=== PATIENT | female | born 1985 | race Caucasian/White ===

== ENCOUNTER 2019-12-14 | Inpatient (IN) | payer OTHER, SELFPAY ==
[2019-12-14] VITALS (224 sets, daily range): BP systolic 63–208; BP diastolic 15–148; PULSE 45–157; RESP 18–20; TEMP 36.3–37.6; O2SAT 78–100; BMI 34.8
--- NOTE | 2019-12-14 | LDADM ---
This patient, Rosana Banks, was admitted to Labor/Delivery/Recovery 109 on 12/14/19 at 00:00. Plans for labor, pain management and were discussed with patient. Patient/family oriented to hospital policies and general routines including ID bracelet, bed and alarms, visiting hours, pain management, procedures, bathroom and other care routines, personal items, smoking policy, room service/diet and guest tray routines, security routines, and visiting hours. Patient/Family are encouraged to report perceived risks to care and to ask questions if they do not understand what they are told or what they should do. See OBIX for further documentation.
[2019-12-14] MEDS: DINOPROSTONE 10 MG VAG INSERT VAGINAL (00:54)
[2019-12-14 00:56] LABS: Basophils Percent Auto 0.2 % (0.2-1.2); Eosinophils Absolute Auto 0.1 K/mm3 (0-0.3); Eosinophils Percent Auto 0.8 % (0-4.4); Hematocrit 32.3 % (37.0-47.0); Hemoglobin 11.5 g/dL (12.0-15.0); Immature Granulocyte Absolute 0.04 K/mm3 (0.00-0.031); Immature Granulocyte Percent A 0.4 % (0-0.5); Lymphocytes Absolute Auto 1.63 K/mm3 (0.9-3.2); Lymphocytes Percent Auto 17.7 % (18.3-44.2); Mean Corpuscular HGB Conc 35.6 g/dl (32-36); Mean Corpuscular Volume 87.1 fl (80-100); Mean Platelet Volume 10.8 fl (7.4-10.4); Monocytes Absolute Auto 0.6 K/mm3 (0.1-0.6); Monocytes Percent Auto 6.5 % (2.6-8.5); Neutrophils Absolute Auto 6.9 K/mm3 (1.3-6.7); Neutrophils Percent Auto 74.4 % (45.5-73.1); Platelet Count Result 259 k/mm3 (150-375); Red Blood Count 3.71 M/mm3 (4.2-5.4); Red Cell Distribution Width 12.2 % (11.5-14.5); White Blood Count 9.2 K/mm3 (4.5-10.0)
--- NOTE | 2019-12-14 07:31 | P.PNAN_ITS ---
Anes - Eval Pre Procedure Procedure: Labor epidural Date/Time: 12/14/19 07:31 Surgeon: Jeffy Pre Op Diagnosis: IOL Patient Data Age: 34 Gender: F Height: 1.65 m Weight: 95 kg Last Vital Signs Temp 36.6 C 12/14/19 02:59 Pulse 77 12/14/19 07:01 BP 116/79 12/14/19 07:01 Allergies Allergy/AdvReac Type Severity Reaction Status Date / Time latex Allergy Rash Verified 12/14/19 00:08 Home Medications Medication Instructions Recorded Confirmed Type PNV cmb#95-ferrous fumarate-FA 1 tablet PO DAILY 11/20/19 12/14/19 History [] Laboratory Tests 12/14/19 12/14/19 12/14/19 00:37 00:37 00:37 WBC 9.2 K/mm3 K/mm3 (4.5-10.0) RBC 3.71 M/mm3 L M/mm3 (4.2-5.4) Hgb 11.5 g/dL L g/dL (12.0-15.0) Hct 32.3 % L % (37.0-47.0) MCV 87.1 fl fl (80-100) MCH 31.0 pg pg (26-34) MCHC 35.6 g/dl g/dl (32-36) RDW 12.2 % % (11.5-14.5) Plt Count 259 k/mm3 k/mm3 (150-375) MPV 10.8 fl H fl (7.4-10.4) Immature Gran % (Auto) 0.4 % % (0-0.5) Neut % (Auto) 74.4 % H % (45.5-73.1) Lymph % (Auto) 17.7 % L % (18.3-44.2) [place] % (Auto) 6.5 % % (2.6-8.5) Eos % (Auto) 0.8 % % (0-4.4) Baso % (Auto) 0.2 % % (0.2-1.2) Lymph # (Auto) 1.63 K/mm3 K/mm3 (0.9-3.2) [place] # (Auto) 0.6 K/mm3 K/mm3 (0.1-0.6) Eos # (Auto) 0.1 K/mm3 K/mm3 (0-0.3) Baso # (Auto) 0.0 K/mm3 K/mm3 (0.0-0.1) Abs Immat Gran (auto) 0.04 K/mm3 H K/mm3 (0.00-0.031) Absolute Neuts (auto) 6.9 K/mm3 H K/mm3 (1.3-6.7) Absolute Nucleated RBC 0.0 K/mm3 K/mm3 (0.0-0.012) Nucleated RBC % 0.0 % % (0.0-0.2) RPR Pending Blood Type O Positive Antibody Screen Negative Patient hx anesthesia problems: none Family hx anesthesia problems: none PMFSH Family History Family History Father Acute myocardial infarction Social History Social History Smoking status: Former smoker Tobacco type: cigarettes Substance use: never Spiritual care concerns: No Exam Day of Procedure 12/14/19 07:31 Patient weight: obese Heart: regular rate and rhythm Lungs: normal air movement Airway: Mallampati scale class II Neurological: alert and oriented
[2019-12-14] MEDS: OXYTOCIN 30 UNITS/NS 500 ML 30 UNITS/500 ML BAG 6 UNITS IV CONT (08:00)
[2019-12-14] MEDS: LACTATED RINGERS 1,000 ML 125 ML IV CONT ×5 (08:00→22:58)
[2019-12-14 09:36] LABS: Rapid Plasma Reagin Non-Reactive (NonReactive)
--- NOTE | 2019-12-14 13:29 | WPDOBADMIT ---
Obstetrics - Admit Note Admission Note: record reviewed. No pertinent additions to the history and/or any subsequent changes in the physical findings that are not consistent with the expected course of the were found. Additions to the history and/or subsequent changes in the physical findings follow. None.Here for MIL. cervix FT/50/-3 attempted AROM but did not have fluid return Per RN, shortly after, clear fluid noted. FHTs reactive.
[2019-12-14] MEDS: LORATADINE 10 MG TABLET PO (14:44)
[2019-12-14] MEDS: SODIUM CHLORIDE 0.9% IV 300 ML 600 ML I-UTERINE (15:50)
[2019-12-14] MEDS: ONDANSETRON INJ 4 MG/2 ML VIAL IV PUSH (20:01)
[2019-12-15] VITALS (106 sets, daily range): BP systolic 98–150; BP diastolic 41–107; PULSE 57–116; RESP 14–20; TEMP 36.8–38.2; O2SAT 95–100
[2019-12-15] MEDS: AMPICILLIN 2 GM/NS 100 ML 2 GM/100 ML BAG IVPB (01:00)
--- NOTE | 2019-12-15 04:16 | PM.OBPNVD ---
OB - PN: Subj Subjective Date/time seen: 12/15/19 04:16 Interval history: Patient with slow progress in labor. Has been 4-5 cm for many hours. Now 5/80/-2 by my exam. FHT's have been category 2 throughout day and Pitocin has been on and off (which I was informed of). Now has elevated baseline 170's x 2 1/2 hours and decreased variability with random variables and occ. late decels which I discovered when I came to labor for a separate delivery. Due to temp of 99.6 and headache, RN gave tylenol. Now, temp is 100.8. Discussed with patient and recommend proceed with csection. OB - PN: Obj Data Labs CBC & Chem 7: 12/14/19 00:37 Labs: Laboratory Results - last 24 hr 12/14/19 00:37 RPR Non-reactive OB - PN A/P Time Spent With Patient Time: Total time spent is greater than 50% in coordination of care (as documented) at patient's floor/unit and/or counseling patient:
--- NOTE | 2019-12-15 04:22 | PM.IMHP ---
H&P: HPI History of Present Illness Date/Time: 12/15/19 04:22 Chief complaint: IOL Narrative: Rosana Banks is a 34 year old female here for MIL. Patient with slow progress in labor. Has been 4-5 cm for many hours. Now 5/80/-2 by my exam. FHT's have been category 2 throughout day and Pitocin has been on and off (which I was informed of). Now has elevated baseline 170's x 2 1/2 hours and decreased variability with random variables and occ. late decels which I discovered when I came to labor for a separate delivery. Due to temp of 99.6 and headache, RN gave tylenol. Now, temp is 100.8. Discussed with patient and recommend proceed with csection. Patient agrees. uncomplicated. labs: O+; RPR -; HBSAg -; Rubella immune; HIV -; GBS -. [facility] Family History Family History Father Acute myocardial infarction Social History Social History Smoking status: Former smoker Tobacco type: cigarettes Substance use: never Spiritual care concerns: No Meds Home Medications and Allergies Home Medications Medication Instructions Recorded Confirmed Type PNV cmb#95-ferrous fumarate-FA 1 tablet PO DAILY 11/20/19 12/14/19 History [] Allergies Allergy/AdvReac Type Severity Reaction Status Date / Time latex Allergy Rash Verified 12/14/19 00:08 Vital Signs Vital Signs - 24 hr 12/14/19 07:00 12/14/19 07:01 12/14/19 08:28 Temperature Pulse Rate 76 77 77 Respiratory Rate Blood Pressure 113/84 116/79 121/79 Pulse Oximetry 12/14/19 08:30 12/14/19 09:01 12/14/19 09:30 Temperature 98.8 F Pulse Rate 77 75 73 Respiratory Rate 20 Blood Pressure 135/82 112/69 119/78 Pulse Oximetry 12/14/19 10:01 12/14/19 11:01 12/14/19 11:16 Temperature Pulse Rate 77 57 L 62 Respiratory Rate Blood Pressure 131/86 113/64 128/77 Pulse Oximetry 12/14/19 11:17 12/14/19 11:21 12/14/19 11:22 Temperature Pulse Rate 63 Respiratory Rate Blood Pressure 121/79 Pulse Oximetry 98 99 12/14/19 11:27 12/14/19 11:30 12/14/19 11:31 Temperature 97.5 F L Pulse Rate 63 64 Respiratory Rate Blood Pressure 124/66 113/80 Pulse Oximetry 97 12/14/19 11:32 12/14/19 11:36 12/14/19 11:37 Temperature Pulse Rate 57 L Respiratory Rate Blood Pressure 121/59 L Pulse Oximetry 98 100 12/14/19 11:38 12/14/19 11:40 12/14/19 11:42 Temperature 97.4 F L Pulse Rate 63 81 74 Respiratory Rate Blood Pressure 109/60 115/63 111/59 L Pulse Oximetry 99 12/14/19 11:46 12/14/19 11:47 12/14/19 11:48 Temperature Pulse Rate 115 H 69 Respiratory Rate Blood Pressure 95/60 L 96/53 L Pulse Oximetry 98 12/14/19 11:52 12/14/19 11:54 12/14/19 11:57 Temperature Pulse Rate 52 L 53 L Respiratory Rate Blood Pressure 92/53 L 109/57 L Pulse Oximetry 100 99 12/14/19 11:58 12/14/19 12:02 12/14/19 12:04 Temperature Pulse Rate 58 L 61 Respiratory Rate Blood Pressure 95/46 L 94/39 L Pulse Oximetry 98 12/14/19 12:07 12/14/19 12:12 12/14/19 12:15 Temperature Pulse Rate 62 57 L Respiratory Rate Blood Pressure 92/41 L 91/49 L Pulse Oximetry 99 99 12/14/19 12:17 12/14/19 12:22 12/14/19 12:27 Temperature Pulse Rate Respiratory Rate Blood Pressure Pulse Oximetry 100 99 98 12/14/19 12:31 12/14/19 12:32 12/14/19 12:37 Temperature Pulse Rate 60 Respiratory Rate Blood Pressure 86/44 L Pulse Oximetry 100 96 12/14/19 12:42 12/14/19 12:45 12/14/19 12:47 Temperature Pulse Rate 68 Respiratory Rate Blood Pressure 104/62 Pulse Oximetry 100 100 12/14/19 12:52 12/14/19 12:57 12/14/19 13:00 Temperature Pulse Rate 64 Respiratory Rate Blood Pressure 106/63 Pulse Oximetry 98 99 12/14/19 13:02 12/14/19 13:07 12/14/19 13:12 [place]
[2019-12-15] MEDS: ceFAZolin 2 GM/D5W 50 ML 2 GM/50 ML BAG IVPB (04:40)
[2019-12-15] MEDS: AMPICILLIN 1 GM/NS 50 ML 1 GM/50 ML BAG IVPB (05:02)
--- NOTE | 2019-12-15 05:31 | PM.OBDSVD ---
DS: Admitting Diagnosis Admitting Diagnosis Admitting Diagnosis: IOL IUP 39 wks intolerance of labor chorioamnionitis DS: Discharge Diagnosis Discharge Diagnosis (1) Chorioamnionitis: Code(s): O41.1290 - Chorioamnionitis, unspecified trimester, not applicable or unspecified Status: Acute (2) intolerance to labor, delivered, current hospitalization: Code(s): O77.9 - Labor and delivery complicated by stress, unspecified Status: Acute (3) 39 weeks gestation of : Code(s): Z3A.39 - 39 weeks gestation of Status: Acute (4) delivery delivered: Code(s): O82 - Encounter for delivery without indication Status: Acute OB - DS: Summary OB Procedures : Ultrasound OB Procedures Intrapartum: low cervical, transverse OB Procedures: : None Peripartum Data Infant Delivery Method: Section Procedures: Procedures Operation Date: 12/15/19 04:20 <No data on this case meets the specified criteria> Status at Discharge Functional status at discharge: independent ambulation Overall status at discharge: patient is progressing back to baseline Time Spent with Patient Time attestation: Total time spent providing and/or coordinating discharge services: DS: Data Data Completed and Pending Labs on day of discharge: Labs from last 24 hours 12/14/19 00:37 RPR Non-reactive Discharge Plan Discharge Attending physician on discharge: Supriya Bardales Discharging Clinician: Supriya Bardales Anticipated Discharge Date/Time: 12/18/19 05:33 Patient Disposition: Home, Self-Care Activity: may shower, may drive after 2 weeks and pelvic rest Diet: regular Wound Care Instructions: incision open to air Discharge Instructions: Education: Mom and Baby Guide Given to: Mother Follow-Up: Call your delivering provider's office for an appointment to be seen in: 1 Week [facility]. Appointment Date/Time: December 18, 2019 at 8:00 am What to expect at your follow-up visit: Blood Pressure Check Physical Assessment Call [phone] if you are unable to keep your appointment time. BREAST CARE: * Wear a snug supportive bra. Bottle Feeding: * May apply ice packs * For sore nipples: * Identify correct latch-on * Apply warm moist washcloths before and after nursing * Air dry nipples after nursing * May apply Lansinoh cream to nipples ABDOMINAL INCISION: (if applicable) * Allow incision to air dry * Do NOT use lotions for powders on your incision * When showering, allow soap and water to run over the incision, but do not wash incision EPISIOTOMY/PERINEAL CARE: * Until bleeding stops, use your danilo bottle after urinating * Change your pad frequently throughout the day * No tub baths until seen by your physician - You may shower ACTIVITY: * Rest as much as possible. * Do not exercise or lift anything heavier than your baby (such as laundry or other children.) * Avoid stairs or driving as much as possible. * Do not put anything into the vagina. No douching, tampons, or sexual activity until seen by physician. NOTIFY PHYSICIAN IF YOU HAVE ANY QUESTIONS OR IF ANY OF THE FOLLOWING SYMPTOMS OCCUR: * If your incision becomes red, swollen, or more painful than what you have experienced in the hospital. * If your vaginal bleeding becomes foul smelling. * If your vaginal bleeding becomes more heavy than a period or if your bleeding changes from pink to bright red. However, you may pass an occasional walnut-sized clot once or twice for the first week . * If you experience a sharp, shooting pain in you calves. * If you discover a hard, reddened area on your breast or if you experience flu-like symptoms. DIET: * Eat reg
--- NOTE | 2019-12-15 05:34 | PM.PROC ---
Procedure Note - Detailed Date of procedure: 12/15/19 Pre-op diagnosis: IOL chorioamnionitis 39 wks intolerance of labor Post-op diagnosis: same Procedure performed: LTCS Description of procedure: The patient was taken to the operating room placed in the dorsal supine position with a leftward tilt. Once anesthesia was deemed adequate, a Pfannenstiel skin incision was made with a scalpel and carried down to the underlying layer of fascia. The rectus muscles were in the midline. The peritoneum was tented with a peon and entered with Metzenbaum. The incision was extended with blunt traction. The bladder blade is placed. The vesicouterine peritoneum was tented and entered with Metzenbaums. The incision is extended laterally the bladder flap was created digitally. The lower uterine segment was incised in a transverse fashion with the scalpel and extended laterally using blunt traction. The 's head is brought up into the incision and delivered while the certified teacher assistant applied fundal pressure. The infant's head is noted to be in the occiput posterior position. The was fully delivered the cord is detangled, clamped and cut. The is handed to the waiting OB nurse. The placenta is removed using manual traction after cord blood is drawn. The uterus is exteriorized cleared of all clots and debris. The uterine incision is closed using O Monocryl in a running locked fashion. Same suture was used to obtain hemostasis and imbricate. the cul-de-sac is irrigated. The uterus is returned to the abdomen. The gutters are irrigated. The incision is again inspected noted to be hemostatic. The fascia was closed using 0 Vicryl in a running fashion. Skin incision is closed using 4 0 Vicryl in a subcuticular fashion after irrigation. Sponge instrument needle counts are correct per the OR staff. Anesthesia: epidural Surgeon: Supriya Bardales MD Estimated blood loss (mL): 430 Drains: Yes (phillips) Packing: No Pathology: yes (placenta) Complications: No immediate complications Condition: stable Disposition: PACU Findings: female infant in ROP position weighing 6#12oz with 7/9 Apgars nuchal cord x 1 tight; normal appearing placenta normal appearing tubes, ovaries, and uterus
[2019-12-15] MEDS: OXYTOCIN 30 UNITS/NS 500 ML 30 UNITS/500 ML BAG 125 UNITS IV CONT (06:38)
[2019-12-15] MEDS: LORATADINE 10 MG TABLET PO (06:40)
--- NOTE | 2019-12-15 07:52 | PC.NURSE ---
Patient transferred to post room #290 via stretcher from labor and delivery. Support person present. Oriented to unit, room, information board, rooming in, admission packet and security measures. Patient verbalizes understanding.
[2019-12-15] MEDS: DEXTROSE 5%/0.45% SOD CHL 1,000 ML 125 ML IV CONT (10:44)
[2019-12-15] MEDS: diphenhydrAMINE HCl INJ 50 MG/ML VIAL 25 MG IV PUSH (10:46)
[2019-12-16] MEDS: IBUPROFEN 600 MG TABLET PO ×3 (04:40→17:55)
[2019-12-16 04:59] VITALS: BP 124/73; PULSE 68; RESP 16; TEMP 36.5; O2SAT 98
[2019-12-16 06:02] LABS: Basophils Percent Auto 0.2 % (0.2-1.2); Eosinophils Absolute Auto 0.1 K/mm3 (0-0.3); Eosinophils Percent Auto 0.4 % (0-4.4); Hematocrit 30.4 % (37.0-47.0); Hemoglobin 10.4 g/dL (12.0-15.0); Immature Granulocyte Absolute 0.14 K/mm3 (0.00-0.031); Immature Granulocyte Percent A 0.8 % (0-0.5); Lymphocytes Absolute Auto 1.58 K/mm3 (0.9-3.2); Lymphocytes Percent Auto 9.2 % (18.3-44.2); Mean Corpuscular HGB Conc 34.2 g/dl (32-36); Mean Corpuscular Hemoglobin 30.4 pg (26-34); Mean Corpuscular Volume 88.9 fl (80-100); Mean Platelet Volume 11.2 fl (7.4-10.4); Monocytes Absolute Auto 0.8 K/mm3 (0.1-0.6); Monocytes Percent Auto 4.6 % (2.6-8.5); Neutrophils Absolute Auto 14.5 K/mm3 (1.3-6.7); Neutrophils Percent Auto 84.8 % (45.5-73.1); Platelet Count Result 234 k/mm3 (150-375); Red Blood Count 3.42 M/mm3 (4.2-5.4); Red Cell Distribution Width 12.4 % (11.5-14.5); White Blood Count 17.1 K/mm3 (4.5-10.0)
[2019-12-16 07:00] VITALS: BP 117/55; PULSE 74; RESP 16; TEMP 36.8; O2SAT 97
--- NOTE | 2019-12-16 07:42 | WPDANLDPN2 ---
Anes-Prog Note L&D Date/Time: 12/16/19 07:42 Comfortable throughout: labor and section Neuraxial method: epidural Epidural/Spinal procedure site: clean & non-tender Neuro status: Neuro function grossly intact. Cardiovascular status: normal Respiratory status: normal Airway patency: baseline Mental status: baseline Post-Op hydration status: normal Vital Signs: Last Vital Signs Temp 36.8 C 12/16/19 07:00 Pulse 74 12/16/19 07:00 Resp 16 12/16/19 07:00 BP 117/55 L 12/16/19 07:00 Pulse Ox 97 12/16/19 07:00 I/O: Intake & Output 12/15/19 12/15/19 12/16/19 15:59 23:59 07:59 Intake Total 980 800 450 Output Total 102 335 3201 Balance 655 250 -1750 Post-procedural complaints: none Patient feedback: Patient satisfied with anesthetic care.
--- NOTE | 2019-12-16 07:42 | WPDANLDNPN2 ---
Anes-Prog Note L&D-Neuraxial Date/Time: 12/16/19 07:42 Neuraxial medications: epidural PF morphine Opiod-related complaints: none Patient feedback: Patient satisfied with post-operative pain management.
[2019-12-16] MEDS: DOCUSATE SODIUM 100 MG CAPSULE PO ×2 (10:09→17:53)
[2019-12-16] MEDS: MULTIVIT/MIN/PREN/FOL AC/IRON TABLET 1 TAB PO (10:09)
--- NOTE | 2019-12-16 11:34 | PM.OBPNVD ---
OB - PN: Subj Subjective Date/time seen: 12/16/19 Patient doing okay no complaints today Interval history: Patient with slow progress in labor. Has been 4-5 cm for many hours. Now 5/80/-2 by my exam. FHT's have been category 2 throughout day and Pitocin has been on and off (which I was informed of). Now has elevated baseline 170's x 2 1/2 hours and decreased variability with random variables and occ. late decels which I discovered when I came to labor for a separate delivery. Due to temp of 99.6 and headache, RN gave tylenol. Now, temp is 100.8. Discussed with patient and recommend proceed with csection. OB - PN: Obj Data Labs CBC & Chem 7: 12/16/19 04:28 Labs: Laboratory Results - last 24 hr 12/16/19 04:28 WBC 17.1 H RBC 3.42 L Hgb 10.4 L Hct 30.4 L MCV 88.9 MCH 30.4 MCHC 34.2 RDW 12.4 Plt Count 234 MPV 11.2 H Immature Gran % (Auto) 0.8 H Neut % (Auto) 84.8 H Lymph % (Auto) 9.2 L [place] % (Auto) 4.6 Eos % (Auto) 0.4 Baso % (Auto) 0.2 Lymph # (Auto) 1.58 [place] # (Auto) 0.8 H Eos # (Auto) 0.1 Baso # (Auto) 0.0 Abs Immat Gran (auto) 0.14 H Absolute Neuts (auto) 14.5 H Absolute Nucleated RBC 0.0 Nucleated RBC % 0.0 OB - PN A/P Assessment and Plan (1) delivery delivered: Code(s): O82 - Encounter for delivery without indication Status: Acute Assessment and Plan: continue with pp care. Time Spent With Patient Time: Total time spent is greater than 50% in coordination of care (as documented) at patient's floor/unit and/or counseling patient: Exam GI: Inspection: incision (clean dry and intact)
[2019-12-16] MEDS: SIMETHICONE 80 MG TAB.CHEW PO (17:53)
[2019-12-16 18:40] VITALS: BP 122/68; PULSE 73; RESP 16; TEMP 36.4; O2SAT 99
[2019-12-17 08:00] VITALS: BP 111/69; PULSE 66; RESP 18; TEMP 36.6
[2019-12-17] MEDS: IBUPROFEN 600 MG TABLET PO (08:20)
[2019-12-17] MEDS: SIMETHICONE 80 MG TAB.CHEW PO (08:20)
[2019-12-17] MEDS: LORATADINE 10 MG TABLET PO (08:21)
[2019-12-17] MEDS: DOCUSATE SODIUM 100 MG CAPSULE PO (08:21)
--- NOTE | 2019-12-17 09:00 | PC.NURSE ---
Patient viewed the discharge video Mother & Baby Care, The First Two Weeks . Patient was given the opportunity and encouraged to ask questions. Patient verbalized understanding of information shared and has been given the mother/baby guide for home reference.
--- NOTE | 2019-12-17 10:42 | PM.OBPNVD ---
OB - PN: Subj Subjective Date/time seen: 12/17/19 10:42 Doing well no complaints desires home today. Interval history: Patient with slow progress in labor. Has been 4-5 cm for many hours. Now 5/80/-2 by my exam. FHT's have been category 2 throughout day and Pitocin has been on and off (which I was informed of). Now has elevated baseline 170's x 2 1/2 hours and decreased variability with random variables and occ. late decels which I discovered when I came to labor for a separate delivery. Due to temp of 99.6 and headache, RN gave tylenol. Now, temp is 100.8. Discussed with patient and recommend proceed with csection. OB - PN: Obj Data Labs CBC & Chem 7: 12/16/19 04:28 OB - PN A/P Assessment and Plan (1) delivery delivered: Code(s): O82 - Encounter for delivery without indication Status: Acute Assessment and Plan: Discharge home with follow up in 1 week for incision check. Time Spent With Patient Time: Total time spent is greater than 50% in coordination of care (as documented) at patient's floor/unit and/or counseling patient: Exam GI: Other: ff below umbilicus incision clean and dry
--- NOTE | 2019-12-17 11:34 | PC.NURSE ---
Self care and infant care discharge instructions given including follow up visit date and time. Mother verbalized understanding. FOB at side.
[2019-12-18 07:58] VITALS: BP 127/80; PULSE 74; RESP 16; TEMP 36.7; O2SAT 99
== END 2019-12-17 12:33 | disposition home or self-care (01) | DRG 786 ==
LOC: ANHLDR 12-20 08:07 → ANHOB2 12-20 08:07
PROVIDERS: Admitting Provider Obstetrics & Gynecology Gynecology; Visit Provider Obstetrics & Gynecology
PROC: 10D00Z1 Extraction of Products of Conception, Low, Open Approach (ICD-10-PCS; CPT 59514; principal; 2019-12-15 04:20)
DX: O77.9 Labor and delivery complicated by fetal stress, unspecified (principal); O41.1230 Chorioamnionitis, third trimester, not applicable or unspecified; O75.2 Pyrexia during labor, not elsewhere classified; O69.81X0 Labor and delivery complicated by cord around neck, without compression, not applicable or unspecified; Z3A.39 39 weeks gestation of pregnancy; Z37.0 Single live birth
CPT/HCPCS: 36415; 85025; 86592; 86850; 86900; 86901; 88307; A9270; J0131; J0290; J0690; J1200; J2274; J2370; J2405; J2590; J2795; J3010; J7030; J7120

== ENCOUNTER 2022-09-21 11:25 | Outpatient (CLI) | payer BC, SELFPAY ==
--- NOTE | ~2022-09-21 | XR_ITS ---
EXAMINATION: XR hysterosalpingogram DATE: 09/21/2022 12:20 INDICATION: Infertility. TECHNIQUE: Fluoroscopy was performed by the radiologist during contrast infusion into the endometrial cavity of the uterus by the primary physician. Fluoroscopy exposure time was 0.2 minutes. The total number of images was 4. FINDINGS: The intrauterine cavity is normal in morphology. The fallopian tubes are normal. There is n ormal free intraperitoneal spillage of contrast on either side. IMPRESSION: 1. Normal hysterosalpingogram. Reviewed, dictated and finalized at location A.
== END 2022-09-21 11:26 | disposition home or self-care (01) ==
PROVIDERS: Visit Provider Obstetrics & Gynecology Gynecology
DX: Z31.49 Encounter for other procreative investigation and testing (principal)
CPT/HCPCS: 58340; 74740; Q9966

== ENCOUNTER 2023-06-22 12:42 | Outpatient (CLI) | payer BC, SELFPAY ==
--- NOTE | ~2023-06-22 | US_ITS ---
EXAMINATION: US thyroid DATE: 06/22/2023 13:10 INDICATION: Thyroid nodule TECHNIQUE: Multiple ultrasound images of the thyroid were obtained. COMPARISON: None. FINDINGS: The right thyroid lobe measures 4.5 x 1.5 x 1.3 cm. The left thyroid lobe measures 5.2 x 1.8 x 1.1 c m. There are a couple <5 mm wider than tall solid hypoechoic nodules in the right thyroid lobe with smooth well-defined margins and without hyperechoic foci (TI-RADS 4, moderately suspicious , FNA if > =1.5 cm, annual followup is >=1 cm). 2.4 cm predominantly solid wider than tall nodule in the inferio r left thyroid solid component which is hypoechoic with smooth to ill-defined margins and without ech ogenic foci (TI-RADS 3, mildly suspicious , FNA if >=2.5 cm, annual followup is >=1.5 cm). There is n ormal echotexture, echogenicity and vascular flow throughout the surrounding thyroid gland. IMPRESSION: 1. Multinodular goiter, none meeting criteria for biopsy. Recommend annual ultrasound follow-up of th e 2.3 cm TI RADS 3 left thyroid nodule. Reviewed, dictated and finalized at location A. TOP MAKER IMPRESSION: 1. Multinodular goiter, none meeting criteria for biopsy. Recommend annual ultr asound follow-up of the 2.3 cm TI RADS 3 left thyroid nodule.
--- NOTE | ~2023-06-22 | US_ITS ---
Pelvic ultrasound. Clinical History: Pelvic swelling Technique: Realtime transabdominal and transvaginal scanning of the pelvis was performed. Color flow Doppler and Doppler spectral analysis were performed. Findings: The uterus is anteverted. The endometrial stripe has a thickness of 9 mm. No focal myometr ial mass is identified. Cervical nabothian cyst noted. The right ovary measures 2.1 x 2.8 x 2.0 cm. No significant right ovarian or adnexal mass is seen. The left ovary measures 2.9 x 1.4 x 1.7 cm. No significant left ovarian or adnexal mass is seen. There is no evidence of free fluid in the cul de sac. Impression: No significant abnormality seen. Reviewed, dictated and finalized at [facility]. L ARTIST Impression: No significant abnormality seen.
== END 2023-06-22 12:43 ==
PROVIDERS: PCP Nurse Practitioner; Visit Provider Nurse Practitioner
DX: R19.09 Other intra-abdominal and pelvic swelling, mass and lump (principal); E04.2 Nontoxic multinodular goiter
CPT/HCPCS: 76536; 76830

== ENCOUNTER 2023-07-08 07:54 | Outpatient (CLI) | payer BC, SELFPAY ==
--- NOTE | ~2023-07-08 | US_ITS ---
Limited Abdominal Sonogram: Real-time sonographic imaging of the right upper quadrant was performed. Clinical History: Abnormal liver enzymes Findings: The liver appears normal with no evidence of mass lesion or bile duct dilatation. Main por [place] vein demonstrates normal direction of flow. The gallbladder is well distended, and appears normal with no evidence of gallstone or wall thickening. The common bile duct measures 4 mm. The visualize d pancreas, aorta, and IVC are unremarkable. Impression: No significant abnormality seen. Reviewed, dictated and finalized at location . Impression: No significant abnormality seen.
== END 2023-07-08 07:55 ==
LOC: GOSHIMG 07:55
PROVIDERS: PCP Nurse Practitioner; Visit Provider Nurse Practitioner
DX: R74.8 Abnormal levels of other serum enzymes (principal)
CPT/HCPCS: 76705

== ENCOUNTER 2024-01-25 10:52 | Outpatient (RCR) | payer BC, SELFPAY ==
--- NOTE | 2024-01-25 14:11 | OPREHPOC ---
Outpatient Therapy Plan of Care This is a Multidisciplinary Plan of Care that may contain components documented by all disciplines (PT, OT, and ST.) PT Problem 1 PT Problem #1 Knowledge Deficit PT Goal 1 Goal / Goal Update 1. independent and compliant with HEP Target Visit 6 PT Problem 2 PT Problem #2 Pain PT Goal 1 Goal / Goal Update 1. pain free return to daily activities Target Visit 12 PT Problem 3 PT Problem #3 Impaired Range of Motion PT Goal 1 Goal / Goal Update 1. 15 degrees or better L ankle DF arom 2. 60 degrees or better L ankle PF arom 3. 25 degrees or better L ankle IV arom 4. 10 degrees or better L ankle EV arom Target Visit 12 PT Problem 4 PT Problem #4 Impaired Strength PT Goal 1 Goal / Goal Update 1. 5/5 L ankle strength Target Visit 12 PT Problem 5 PT Problem #5 Impaired Functional Mobil PT Goal 1 Goal / Goal Update 1. patient to ambulate with normal gait mechanics and no AD or bracing 2. patient to ambulate up and down steps with reciprocal mechanics with minimal UE assist 3. patient to stand for 2 hours without increased pain in the L ankle. 4. LEFS to display 20% or less functional deficits Target Visit 12
--- NOTE | 2024-01-25 14:11 | PTOPEVAL1 ---
Assessment and note entered by JT File, PT Evaluation Information Assessment Status Evaluation Diagnosis ORIF L ankle fracture ICD-10 Condition Codes (PT) M25.572,Z47.89 Onset 12/02/23 Subjective Information patient broke her L ankle on 12/02/23, she reports she fell off her front porch. she reports she had surgery to fix her fracture on 12/13/23. she reports she was in a boot immediately after the fall. she was then in a splint cast for for about 6 weeks. she reports she has had no weight on the L ankle since her fall. prior to the fall, no AD for ambulation. she is a massage therapist. she had follow up xrays yesterday, and reports she was told the fracture is fully healed. Reported Pain Level Pain Score 0: Self Report Assessment PT Clinical Summary mrs. cantu is a 38 yo woman who presents to skilled PT services for evaluation and treatment s /p fracture and ORIF of the L ankle. she had a fracture and ORIF of the L fibula. she presents today with deficits in L ankle rom, L ankle strength, L ankle stability, and displays abnormal weight bearing and gait mechanics. she would benefit from continued skilled PT services to improve her objective/functional deficits and progress towards a return to her prior level functional activity performance and quality of life. Plan of Care Interventions Electrical Stimulation,Gait Training,Hot Pack/Cold Pack,Manual Therapy,Neuro Re-education,Patient/ Caregiver Educati,Therapeutic Activities, Therapeutic Exercise PT Services Indicated Yes Treatment Frequency and 3x weekly for 12 visits Duration These treatments will address the objective and functional deficits as defined above. The patient will be advanced safely and appropriately in order for the patient to progress towards his/her prior level of function. Additional exercises will be introduced and as well as a comprehensive home exercise program upon discharge, if needed, ?to ensure carryover of functional gains achieved in the clinic. This treatment plan has been reviewed and agreement upon by the patient.
--- NOTE | 2024-02-15 14:11 | PTOPPROG ---
Assessment and note entered by Colleen Damon, PT Evaluation Information Assessment Status Progress Diagnosis ORIF L ankle fracture ICD-10 Condition Codes (PT) M25.572 Other ICD-10 Condition Codes ( Z47.89 PT) Onset 12/02/23 Subjective Information Rosana Banks reports her ankle is getting better overall. She has started to wean out of her boot and reports she goes about 1 hour 15 mins a day without the boot. She is still wearing her boot at work so she is not tempted to overdo it. She was up a lot over the weekend shopping one day while wearing her boot and notes she was sore that night. She also notes she still has a lot of swelling in the left ankle. Assessment PT Clinical Summary Rosana Banks has completed 10 skilled PT visits for left ankle pain s/p ORIF after a tibia fracture. She is reporting overall improvements noting she can walk without the boot a little bit each day however, she still has swelling and wears her boot while at work and when she is walking for a long period/distance. She objectively demonstrates improved left ankle AROM and improved gait. She is steadily progress with left ankle strength and balance but remains limited. She continues to have altered gait as well as decreased functional abilities. She will continue to benefit from skilled PT to further address ongoing deficits and return her to her PLOF. Plan of Care Interventions Manual Therapy,Neuro Re-education,Patient/ Caregiver Educati,Therapeutic Activities, Therapeutic Exercise PT Services Indicated Yes Treatment Frequency and Continue skilled PT 2 times a week for 8 visits Duration These treatments will address the objective and functional deficits as defined above. The patient will be advanced safely and appropriately in order for the patient to progress towards his/her prior level of function. Additional exercises will be introduced and as well as a comprehensive home exercise program upon discharge, if needed, ?to ensure carryover of functional gains achieved in the clinic. This treatment plan has been reviewed and agreement upon by the patient.
--- NOTE | 2024-04-21 15:07 | OPREHPOC ---
Outpatient Therapy Plan of Care This is a Multidisciplinary Plan of Care that may contain components documented by all disciplines (PT, OT, and ST.) PT Problem 1 PT Problem #1 Knowledge Deficit PT Goal 1 Goal / Goal Update 1. independent and compliant with HEP Target Visit 6 Progress Met PT Goal 2 Goal / Goal Update Continue to progress. Target Visit 18 PT Problem 2 PT Problem #2 Pain PT Goal 1 Goal / Goal Update 1. pain free return to daily activities Target Visit 12 Progress Not Met PT Goal 2 Goal / Goal Update progress towards, continue Target Visit 18 PT Problem 3 PT Problem #3 Impaired Range of Motion PT Goal 1 Goal / Goal Update 1. 15 degrees or better L ankle DF arom -not met 2. 60 degrees or better L ankle PF arom -not met 3. 25 degrees or better L ankle IV arom -met 4. 10 degrees or better L ankle EV arom -met Target Visit 12 Progress Partially Met PT Goal 2 Goal / Goal Update Continue 1 & 2 Target Visit 18 PT Problem 4 PT Problem #4 Impaired Strength PT Goal 1 Goal / Goal Update 1. 5/5 L ankle strength Target Visit 12 Progress Not Met PT Goal 2 Goal / Goal Update continue Target Visit 18 PT Problem 5 PT Problem #5 Impaired Functional Mobility PT Goal 1 Goal / Goal Update 1. patient to ambulate with normal gait mechanics and no AD or bracing -not met 2. patient to ambulate up and down steps with reciprocal mechanics with minimal UE assist -not met 3. patient to stand for 2 hours without increased pain in the L ankle. -not met 4. LEFS to display 20% or less functional deficits -not met Target Visit 12 Progress Not Met PT Goal 2 Goal / Goal Update Continue 1-4 Target Visit 18
--- NOTE | 2024-04-21 15:07 | PTOPDC ---
Assessment and note entered by JT File, PT Evaluation Information Assessment Status Discharge - Pt Not Present Diagnosis ORIF L ankle fracture ICD-10 Condition Codes (PT) Pain in left ankle and joints of left foot M25.572 Other ICD-10 Condition Codes ( Z47.89 PT) Onset 12/02/23 Subjective Information Rosana Cantu reports her ankle is getting better overall. She has started to wean out of her boot and reports she goes about 1 hour 15 mins a day without the boot. She is still wearing her boot at work so she is not tempted to overdo it. She was up a lot over the weekend shopping one day while wearing her boot and notes she was sore that night. She also notes she still has a lot of swelling in the left ankle. Assessment PT Clinical Summary mrs. cantu has not been to skilled PT in over a month. she was last seen on 03/14/24. she has been called several times with no return calls to get back on the schedule. patient will be DC'd from skilled PT services this date, and all progress towards goals is available in her most recent evaluation/note. Plan of Care PT Services Indicated Yes
== END 2024-03-14 15:00 | disposition home or self-care (01) ==
LOC: CHSPT 10:52
DX: S82.832D Other fracture of upper and lower end of left fibula, subsequent encounter for closed fracture with routine healing (principal); Z98.890 Other specified postprocedural states
CPT/HCPCS: 97110; 97112; 97140; 97150; 97161; 97530

== ENCOUNTER 2024-06-27 12:35 | Outpatient (CLI) | payer BC, SELFPAY ==
--- NOTE | ~2024-06-27 | US_ITS ---
EXAMINATION: US thyroid DATE: 06/27/2024 13:01 INDICATION: Nontoxic single thyroid nodule. TECHNIQUE: Multiple ultrasound images of the thyroid were obtained. COMPARISON: Ultrasound 06/22/2023 FINDINGS: The right thyroid lobe measures 4.8 x 1.5 x 1.6 cm. The left thyroid lobe measures 5.7 x 2.1 x 1.9 c m. In the left thyroid lobe, there is a 2.4 cm mixed cystic and solid, isoechoic, wider than tall no dule with smooth margin without echogenic foci (TI-RADS TR2). In the right thyroid lobe, there is a 5 mm solid, hypoechoic, wider than tall nodule with smooth margin without echogenic foci (TR4). In the right thyroid lobe, there is a 4 mm nodule. IMPRESSION: 1. Thyroid nodules, likely not clinically significant. No follow-up is needed. Reviewed, dictated and finalized at location B.
== END 2024-06-27 12:36 | disposition home or self-care (01) ==
PROVIDERS: PCP Nurse Practitioner; Visit Provider Nurse Practitioner
DX: E04.2 Nontoxic multinodular goiter (principal)
CPT/HCPCS: 76536